=== PATIENT | male | born 1995 | race American Indian/Alaskan Native ===

== ENCOUNTER 2017-10-06 05:01 | Emergency (ER) | payer SELFPAY ==
[2017-10-06 05:24] VITALS: BP 128/78
[2017-10-06] MEDS ORDERED: FUL-GLO OP ONE (07:20)
[2017-10-06] MEDS ORDERED: TETRACAINE 0.5% OU ONE (07:21)
[2017-10-06] MEDS ORDERED: BOOSTRIX IM ONE (08:53)
--- NOTE | 2017-10-06 08:56 | Emergency Department Report ---
Eye Injury/Foreign Body - HPI Duration: 2 Days Eye Location: Left Severity: None Tetanus Status: Not up to Date Eye Symptoms: Eye Pain: Yes, Blurred Vision: No, Eye Redness: Yes, Grinding/ Hammering Metal: No, Used Eye Protection: No, Contact Lens Use: No, Recalls Injury: Yes, Photophobia: No Other History: This is a 22-year-old male nontoxic, well nourished in appearance , no acute signs of distress presents to the ED with c/o of left eye pain and redness x1 day. Patient stated he was at work with hypertension glasses and when he tried apparent on by accidentally poked his eye with it. Patient denies any nausea, vomiting, decreased vision, chest pain, shortness of breath, headache, stiff neck, numbness or tingling. Patient denies significant past medical history or drug allergies. ED Review of Systems ROS: Stated complaint: FB IN EYE Other details as noted in HPI Constitutional: denies: chills, fever Eyes: eye pain. denies: eye discharge, vision change ENT: denies: ear pain, throat pain Respiratory: denies: cough, shortness of breath, wheezing Cardiovascular: denies: chest pain, palpitations Endocrine: no symptoms reported Gastrointestinal: denies: abdominal pain, nausea, diarrhea Genitourinary: denies: urgency, dysuria Musculoskeletal: denies: back pain, joint swelling, arthralgia Skin: denies: rash, lesions Neurological: denies: headache, weakness, paresthesias Psychiatric: denies: anxiety, depression Hematological/Lymphatic: denies: easy bleeding, easy bruising ED Past Medical Hx - Past Medical History Previous Medical History?: No - Surgical History Past Surgical History?: No - Social History Smoking Status: Current Every Day Smoker Substance Use Type: None - Medications Home Medications: Home Medications Medication Instructions Recorded Confirmed Last Taken Type Ciprofloxacin 0.3% (Nf) 2 drops OS 5XD 10 Days drops 10/06/17 Unknown Rx [Ciprofloxacin OPTH] Eye Injury Exam - Exam General: Vital signs noted. No distress. Alert and acting appropriately. GENERAL: The patient is a well-developed, well-nourished in no apparent distress. Patient is alert and acting appropriately for age. Alert and oriented 3, no apparent distress, normal gait, atraumatic. HEENT: Head is normocephalic and atraumatic. PERRL, Extraocular muscles are intact. Pupils are equal, round, and reactive to light and accommodation. Nares appeared normal. Mouth is well hydrated and without lesions. Mucous membranes are moist. Posterior pharynx clear of any exudate or lesions. Mouth is well hydrated and without lesions. Tonsils not erythematous or swollen. Uvula midline. Tongue elevated. Mucous members are moist. Posterior pharynx clear, no exudate or lesions. Patent airways. NECK: Supple. No carotid bruits. No lymphadenopathy or thyromegaly.nontender. No meningitic signs are noted. LUNGS: Clear to auscultation. Non labor breathing. No intercostal retractions. Symmetrical with respiration, no wheezing, no rales, or crackles. HEART: Regular rate and rhythm without murmur, rubs or gallops. No reproducible. S1, S2 present, regular rate and rhythm without murmur, no rubs, no gallops. ABDOMEN: Soft, nontender, and nondistended. Positive bowel sounds. No hepatosplenomegaly was noted. No guarding or rebound tenderness, negative epigastric bruit. Negative psoas sign, negative wheatley sign, negative McBurneys sign EXTREMITIES: Without any cyanosis, clubbing, rash, lesions or edema. Peripheral pulses intact. Capillary refill less than 2 seconds. Full range of motion bilaterally. NEUROLOGIC: Cranial nerves II through XII are grossly intact. Alert and oriented x 3. Normal gait. Symmetrical strength and sensation. Reflexes 2+ throughout. Cerebellar testing normal. GCS score of 15. PSYCHIATRIC: Normal affect with no suicidal or homicidal ideations. - Visual Acuity Left Vision Acuity Degree: 20/25 Exam: Under Hunt lamp, I used fluorescein and tetracaine to examine cornea for corneal abrasion or foreign body. There is a small corneal abrasion to the middle cornea. No foreign body noted. Tonopen 12. Bilateral Vision Acuity Degree: 20/15 Right Vision Acuity Degree: 20/15 ED Course Vital Signs 10/06/17 05:21 Temperature 98.1 F Pulse Rate 47 L Blood Pressure 128/78 O2 Sat by Pulse 97 Oximetry - Reevaluation(s) Reevaluation #1: 10/06/17 08:58 Patient is speaking in full sentences with no signs of distress noted. Critical care attestation.: If time is entered above; I have spent that time in minutes in the direct care of this critically ill patient, excluding procedure time. ED Disposition Clinical Impression: Corneal abrasion Qualifiers: Encounter type: initial encounter Laterality: left Qualified Code(s): S05.02XA - Injury of conjunctiva and corneal abrasion without foreign body, left eye, initial encounter Disposition: TO HOME OR SELFCARE Is pt being admited?: No Does the pt Need Aspirin: No Condition: Stable Instructions: Corneal Abrasion (ED), Ciprofloxacin (Into the eye) Additional Instructions: Follow-up with a chief controller 3-5 days or if symptoms worsen and continue return to emergency room as soon as possible. Prescriptions: Ciprofloxacin 0.3% (Nf) [Ciprofloxacin OPTH] 2 drops OS 5XD 10 Days drops Referrals: PRIMARY CAREMD [Primary Care Provider] - 3-5 Days MEHUL GRACIA MD [Staff Physician] - 3-[address] [facility] [Outside] - 3-5 Days [facility] [Outside] - 3-5 Days Forms: Work/School Release Form(ED)
== END 2017-10-06 09:21 | disposition home or self-care (01) ==
LOC: ED 05:01
DX: S05.02XA Injury of conjunctiva and corneal abrasion without foreign body, left eye, initial encounter (principal); F17.200 Nicotine dependence, unspecified, uncomplicated; X58.XXXA Exposure to other specified factors, initial encounter; Y93.89 Activity, other specified; Y92.89 Other specified places as the place of occurrence of the external cause; Y99.8 Other external cause status
CPT/HCPCS: 90471; 90715; 99283

== ENCOUNTER 2022-05-12 08:52 | Emergency (ER) | payer SELFPAY ==
[2022-05-12 10:24] VITALS: BP 139/74
--- NOTE | 2022-05-12 10:28 | Emergency Department Report ---
Stated Complaint: ELBOW PAIN - HPI History of Present Illness: patient was [facility] when he fell and report left elbow pain since yesterday and has taken no medication for pain.; no other symptoms reported. - ROS Review of Systems: left elbow pain - Exam Physical Exam: left elbow tenderness noted. no deformity noted. MSE screening note: Focused history and physical exam performed. Due to findings the following was ordered: xray ordered and patient medically screen. pending room assignment to have further eval. ED Disposition for MSE Condition: Stable
--- NOTE | 2022-05-12 10:55 | XRay Report ---
LEFT ELBOW 4 VIEW(S) INDICATION / CLINICAL INFORMATION: injury COMPARISON: None available. FINDINGS: BONES / JOINT(S): There is a nondisplaced fracture through the sublime tubercle. There is an associat ed large joint effusion. No significant arthritis. SOFT TISSUES: No significant abnormality. ADDITIONAL FINDINGS: None. Signer Name: Chance Wright DO Signed: 05/12/2022 10:51 AM Workstation Name: [id number]
--- NOTE | 2022-05-12 13:02 | Emergency Department Report ---
Upper Extremity - HPI Chief Complaint: Extremity Injury, Upper Stated Complaint: Yesterday denies having any direct trauma. Denies having head trauma or any other injury. Time Seen by Provider: 05/12/22 12:53 Upper Extremity: Left Elbow Occurred When: 1 Day Mechanism: Unsure Severity: mild Symptoms: Yes Pain with Movement, Yes Deformity, Yes Swelling ED Review of Systems ROS: Stated complaint: ELBOW PAIN Other details as noted in HPI Constitutional: no symptoms reported Eyes: as per HPI ENT: as per HPI Respiratory: no symptoms reported Cardiovascular: as per HPI Endocrine: no symptoms reported Gastrointestinal: as per HPI Genitourinary: as per HPI Musculoskeletal: as per HPI, joint swelling, other (Left elbow pain) Neurological: as per HPI Hematological/Lymphatic: as per HPI ED Past Medical Hx - Past Medical History Previous Medical History?: No - Surgical History Past Surgical History?: No - Social History Smoking Status: Current Every Day Smoker Substance Use Type: None - Medications Home Medications: Home Medications Medication Instructions Recorded Confirmed Last Taken Type Ciprofloxacin 0.3% (Nf) 2 drops OS 5XD 10 Days drops 10/06/17 Unknown Rx [Ciprofloxacin OPTH] HYDROcodone/APAP 5-325 [[place] 1 each PO Q6HR PRN #10 tablet 05/12/22 Unknown Rx 5/325] Upper Extremity Exam - Exam General: Vital signs noted. No distress. Alert and acting appropriately. Head and Torso: No HEENT Abnormality, No Neck Tenderness, No Chest/Lungs Abnormality, No Abdominal Tenderness, No Back Tenderness Shoulder Exam: No Shoulder Tenderness, No Clavicle Tenderness, No Normal Range of Motion in Shoulder, No Shoulder Deformity, No AC Joint Tenderness Arm Exam: No Arm/Humerus Tenderness, No Arm Deformity Elbow: Yes Elbow Tenderness, Yes Elbow Deformity, No Normal Range of Motion in Elbow Forearm: No Forearm Tenderness, No Forearm Deformity, No Pain with Pronation, No Pain with Supination Wrist: No Wrist Tenderness, No Normal ROM in Wrist Hand: No Hand Tenderness, No Hand Deformity, No Digit Tenderness, No Normal ROM in Digit(s), No Digit(s) Deformity, No Tendon Dysfunction CMS Exam: No Broken Skin, No Normal Distal Pulses, No Normal Capillary Refill, No Normal Distal Sensation ED Course Vital Signs 05/12/22 10:22 Temperature 98.6 F Pulse Rate 51 L Respiratory 17 Rate Blood Pressure 139/74 [Left] O2 Sat by Pulse 99 Oximetry Critical care attestation.: If time is entered above; I have spent that time in minutes in the direct care of this critically ill patient, excluding procedure time. ED Disposition Clinical Impression: Elbow fracture, left Disposition: 01 HOME / SELF CARE / HOMELESS Is pt being admited?: No Does the pt Need Aspirin: No Condition: Stable Instructions: Cast or Splint Care, Adult, [id number] Additional Instructions: Must see orthopedic surgeon this week Prescriptions: HYDROcodone/APAP 5-325 [[place] 5/325] 1 each PO Q6HR PRN #10 tablet PRN Reason: Pain Referrals: JOSEPH ARIZA MD [Staff Physician] - 3-5 Days
== END 2022-05-12 14:55 | disposition home or self-care (01) ==
LOC: ED 08:52
DX: S42.402A Unspecified fracture of lower end of left humerus, initial encounter for closed fracture (principal); W18.39XA Other fall on same level, initial encounter; Y93.89 Activity, other specified; Y92.89 Other specified places as the place of occurrence of the external cause; Y99.8 Other external cause status
CPT/HCPCS: 99283